=== PATIENT | male | born 1950 | race Asian ===

== ENCOUNTER → 2022-10-17 | Outpatient (CLI) | payer OTHER ==
[~2022-10-17] MED LIST: MET10T PO; OMEP20CA74 PO; SIMV10TA84 PO
[2022-10-17 10:46] LABS: Basophils # (auto) 0 10 ^3/uL (0-0.2); Basophils % (auto) 0.5 % (0.0-2.0); Eosinophils # (auto) 0.3 10 ^3/uL (0-0.8); Eosinophils % (auto) 3.1 % (0.0-7.0); Hematocrit 41.4 % (41.0-53.0); Hemoglobin 13.6 g/dL (13.5-17.5); Lymphocytes # (auto) 1.8 10 ^3/uL (0.4-5.4); Lymphocytes % (auto) 21.8 % (10.0-50.0); Mean Corpuscular Hemoglobin 29.3 pg (28.0-32.0); Mean Corpuscular Hgb Conc. 32.9 g/dL (32.0-36.0); Monocytes # (auto) 1.2 10 ^3/uL (0-1.3); Monocytes % (auto) 15.2 % (0.0-12.0); Neutrophils # (auto) 4.8 10 ^3/uL (1.6-8.6); Neutrophils % (auto) 59.4 % (37.0-80.0); Nucleated Red Blood Cells % 0.2 %; Red Blood Cells 4.66 10^6/uL (4.5-5.90); Red Cell Distribution Width 15.1 % (11.8-14.3); White Blood Cell 8.1 10^3/uL (4.4-10.8)
[2022-10-17 11:09] LABS: Urine Bacteria NONE SEEN /hpf (None Seen); Urine Blood Negative /uL (Negative); Urine Mucus FEW (None Seen); Urine Specific Gravity 1.022 (1.001-1.035); Urine WBC 1 /hpf (0 - 3)
[2022-10-17 11:29] LABS: Albumin 3.6 g/dL (3.4-5.0); Calcium 9.3 mg/dL (8.5-10.1); Potassium 4.3 mmol/L (3.5-5.1)
[2022-10-17 11:35] LABS: BUN/Creatinine Ratio 12.9 (10.0-20.0); Bilirubin, Total 0.3 mg/dL (0.2-1.0); Total Protein 7.2 g/dL (6.4-8.2)
== END | disposition home or self-care (01) ==
LOC: LAB 10:07
PROVIDERS: ATTEND Internal Medicine
DX: Z12.11 Encounter for screening for malignant neoplasm of colon (principal); E78.00 Pure hypercholesterolemia, unspecified; N42.9 Disorder of prostate, unspecified; E11.9 Type 2 diabetes mellitus without complications; R68.89 Other general symptoms and signs
CPT/HCPCS: 36415; 80053; 80061; 81001; 83036; 84153; 85025

== ENCOUNTER → 2023-08-20 | Outpatient (CLI) | payer OTHER ==
[~2023-08-20] MED LIST changes: +SIMV10TA20 PO; -SIMV10TA84 PO
[2023-08-20 12:13] LABS: Albumin 4.6 g/dL (3.2-4.8); Alkaline Phosphatase 61 U/L (46-116); Anion Gap 5 (5-15); Aspartate Aminotransferase 12 U/L (13-40); BUN/Creatinine Ratio 9.6 (10.0-20.0); Bilirubin, Total 0.5 mg/dL (0.2-1.0); Blood Urea Nitrogen 12 mg/dL (9-23); Calcium 9.6 mg/dL (8.5-10.1); Carbon Dioxide 27 mmol/L (20-30); Chloride 109 mmol/L (98-107); Cholesterol 144 mg/dL (< 200); Glucose 112 mg/dL (74-106); HDL Cholesterol 34 mg/dL (40-59); Potassium 4.5 mmol/L (3.5-5.1); Sodium 141 mmol/L (136-145); Total Protein 6.9 g/dL (5.7-8.2); Triglycerides 119 mg/dL (< 150)
[2023-08-20 12:14] LABS: Alanine Aminotransferase < 9 U/L (7-40)
[2023-08-20 13:00] LABS: LDL Cholesterol 98 mg/dL (< 100)
== END | disposition home or self-care (01) ==
LOC: LAB 11:16
PROVIDERS: ATTEND Internal Medicine
DX: Z12.11 Encounter for screening for malignant neoplasm of colon (principal); E78.00 Pure hypercholesterolemia, unspecified; R68.89 Other general symptoms and signs; R73.01 Impaired fasting glucose; N42.9 Disorder of prostate, unspecified
CPT/HCPCS: 36415; 80053; 80061; 83036; 84153

== ENCOUNTER → 2024-04-21 | Outpatient (CLI) | payer OTHER ==
[2024-04-21 13:36] LABS: Urine Bacteria None Seen /hpf (None Seen)
[2024-04-21 13:40] LABS: Basophils # (auto) 0 10 ^3/uL (0-0.2); Basophils % (auto) 1.1 % (0.0-2.0); Eosinophils # (auto) 0.2 10 ^3/uL (0-0.8); Eosinophils % (auto) 4.8 % (0.0-7.0); Hematocrit 38.8 % (41.0-53.0); Lymphocytes # (auto) 1.5 10 ^3/uL (0.4-5.4); Lymphocytes % (auto) 41.7 % (10.0-50.0); Mean Corpuscular Hemoglobin 29.5 pg (28.0-32.0); Mean Corpuscular Hgb Conc. 33.4 g/dL (32.0-36.0); Mean Corpuscular Volume 88.3 fL (80.0-100.0); Monocytes # (auto) 0.7 10 ^3/uL (0-1.3); Neutrophils # (auto) 1.3 10 ^3/uL (1.6-8.6); Neutrophils % (auto) 34.4 % (37.0-80.0); Platelet Count (auto) 359 10^3/uL (140-450); Red Blood Cells 4.39 10^6/uL (4.5-5.90); Red Cell Distribution Width 16.6 % (11.8-14.3); White Blood Cell 3.7 10^3/uL (4.4-10.8)
[2024-04-21 14:06] LABS: Urine Blood Negative /uL (Negative); Urine Clarity Clear (Clear); Urine Color Light-Yellow (Yellow); Urine Protein, UAD Negative (Negative); Urine Specific Gravity 1.016 (1.001-1.035); Urine Urobilinogen Normal (Negative); Urine WBC <1 /hpf (0 - 3); Urine pH 5.5 (5.0-9.0)
[2024-04-21 14:10] LABS: Albumin 4.5 g/dL (3.2-4.8); Alkaline Phosphatase 59 U/L (46-116); Anion Gap 5 (5-15); Aspartate Aminotransferase 9 U/L (13-40); BUN/Creatinine Ratio 13.1 (10.0-20.0); Bilirubin, Total 0.3 mg/dL (0.2-1.0); Blood Urea Nitrogen 17 mg/dL (9-23); Calcium 9.8 mg/dL (8.7-10.4); Carbon Dioxide 27 mmol/L (20-31); Chloride 113 mmol/L (98-107); Cholesterol 133 mg/dL (< 200); Glucose 116 mg/dL (74-106); HDL Cholesterol 38 mg/dL (40-59); LDL Cholesterol 88 mg/dL (< 100); Potassium 4.8 mmol/L (3.5-5.1); Sodium 145 mmol/L (136-145); Total Protein 7.5 g/dL (5.7-8.2); Triglycerides 97 mg/dL (< 150)
[2024-04-21 14:15] LABS: Alanine Aminotransferase < 9 U/L (7-40)
[2024-04-21 14:27] LABS: Creatinine, Urine 82.14 mg/dL (30.0-125.0)
[2024-04-21 14:29] LABS: Micro Albumin < 3.0 mg/L (<30.0)
[2024-04-21 14:31] LABS: Microalb/Creat Ratio, Urine < 3.00
== END | disposition home or self-care (01) ==
LOC: LAB 13:15
PROVIDERS: ATTEND Internal Medicine
DX: R68.89 Other general symptoms and signs (principal); E11.9 Type 2 diabetes mellitus without complications; E78.00 Pure hypercholesterolemia, unspecified
CPT/HCPCS: 36415; 80053; 80061; 81001; 82043; 82570; 83036; 85025